=== PATIENT | female | born 1970 | race Caucasian/White ===

== ENCOUNTER 2018-10-08 15:49 | Emergency (ER) | payer BC ==
[2018-10-08] MEDS ORDERED: NA CHLORIDE 0.9% 1,000 ML ONE (16:59)
[2018-10-08 17:00] LABS: Absolute Lymphocytes (CBC) 1.4 K/uL (0.7-4.9); Absolute Monocytes 0.6 K/uL (0.1-1.3); Absolute Neutrophil 5.7 K/uL (1.8-8.0); Basophils % 0.3 % (0-1.3); Hematocrit 40.2 % (36.0-45.0); Lymphocytes % 18.1 % (15.3-44.8); MPV 8.8 fL (7.6-11.3); Monocytes % 7.7 % (3.3-12.3); RBC Red Blood Cell Count 4.89 M/uL (3.86-4.86)
[2018-10-08 17:03] LABS: Protime INR 0.96
--- NOTE | 2018-10-08 17:20 | RAD REPORT ---
EXAM DESCRIPTION: Jasmin Single View10/08/2018 5:13 pm CLINICAL HISTORY: Palpitation and shortness of breath COMPARISON: 2010 FINDINGS: The lungs appear clear of acute infiltrate. The heart is normal size IMPRESSION: No acute abnormalities displayed
[2018-10-08 17:24] LABS: ALT/SGPT 30 U/L (12-78); AST/SGOT 11 U/L (15-37); Albumin 3.7 g/dL (3.4-5.0); Alkaline Phosphatase 97 U/L (45-117); BUN Blood Urea Nitrogen 18 mg/dL (7-18); Bicarbonate 29 mmol/L (21-32); Bilirubin Direct < 0.1 mg/dL (0-0.2); Bilirubin Total 0.3 mg/dL (0.2-1.0); Glucose Level 186 mg/dL (74-106); Magnesium 1.9 mg/dL (1.8-2.4); NT PRO-BNP 25 pg/mL (<125); Potassium 3.6 mmol/L (3.5-5.1); Protein, Total 7.6 g/dL (6.4-8.2); Sodium Level 138 mmol/L (136-145); T3 Free 2.45 pg/mL (2.18-3.98); Troponin (Emerg Dept Use Only) < 0.02 ng/mL (0.0-0.045)
[2018-10-08 18:41] LABS: Urine Blood TRACE (NEG); Urine Glucose NEGATIVE (NEG); Urine Protein NEGATIVE (NEG); Urine Specific Gravity <1.005 (1.005-1.030)
--- NOTE | 2018-10-08 18:54 | RAD REPORT ---
EXAM DESCRIPTION: CT - Chest For Pe Angio - 10/08/2018 6:40 pm CLINICAL HISTORY: sob : None. TECHNIQUE: Dynamically enhanced axial 3 mm thick images of the chest were obtained during administra tion of <100> mL Isovue 370 IV contrast. Coronal and oblique reconstruction images were generated and reviewed. Exam utilizes a protocol for optimal evaluation of pulmonary arterial tree. Maximum intensity projections 3D imaging was utilized All CT scans are performed using dose optimization technique as appropriate and may include automated exposure control or mA/KV adjustment according to patient size. FINDINGS: The opacification of the pulmonary arteries is suboptimal. A gross central pulmonary embol us is not seen A thoracic aortic aneurysm is not noted. A pleural effusion is not seen. A pericardial effusion is not seen. A lung consolidation is not present. IMPRESSION: No gross central pulmonary embolus seen
--- NOTE | 2018-10-08 19:03 | ER ---
Nurse's Notes [facility] Name: Rhianna Nguyen Age: 47 yrs Sex: Female : 1970 Arrival Date: 10/08/2018 Time: 15:53 Bed 14 Private MD: Diagnosis: Palpitations;Ventricular premature depolarization Presentation: 10/08 16:05 Presenting complaint: Patient states: palpitations since this afternoon. Pt denies aa5 chest pain, reports SOB. Pt states "I've had this happen before and it was PVC's and they gave me Bystolic and it was lowering my blood pressure too much my doctor in [place] said to cut it in half and it seems like the palpitations have been happening more often now". Transition of care: patient was not received from another setting of care. Onset of symptoms was October 08, 2018. Risk Assessment: Do you want to hurt yourself or someone else? Patient reports no desire to harm self or others. Initial Sepsis Screen: Does the patient meet any 2 criteria? No. Patient's initial sepsis screen is negative. Does the patient have a suspected source of infection? No. Patient's initial sepsis screen is negative. Care prior to arrival: None. 16:05 Method Of Arrival: Ambulatory aa5 16:05 Acuity: SANDRA 3 aa5 Triage Assessment: 16:32 General: Appears in no apparent distress. uncomfortable, Behavior is calm, cooperative, hj appropriate for age. Pain: Denies pain. 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 - Social history:: Smoking status: Patient/guardian denies using tobacco. - Ebola Screening: : No symptoms or risks identified at this time. Screenin:32 Abuse screen: Denies threats or abuse. Denies injuries from another. Nutritional hj screening: No deficits noted. Tuberculosis screening: No symptoms or risk factors identified. Fall Risk None identified. Assessment: 16:32 General: Appears in no apparent distress. uncomfortable, Behavior is calm, cooperative, hj appropriate for age. Pain: Denies pain. Neuro: Level of Consciousness is awake, alert, obeys commands, Oriented to person, place, time, situation, Appropriate for age. Cardiovascular: Capillary refill < 3 seconds Patient's skin is warm and dry. Respiratory: Airway is patent Respiratory effort is even, unlabored, Respiratory pattern is regular, symmetrical. GI: No signs and/or symptoms were reported involving the gastrointestinal system. : No signs and/or symptoms were reported regarding the genitourinary system. EENT: No signs and/or symptoms were reported regarding the EENT system. Derm: No signs and/or symptoms reported regarding the dermatologic system. Musculoskeletal: No signs and/or symptoms reported regarding the musculoskeletal system. 17:09 Reassessment: Patient and/or family updated on plan of care and expected duration. Pain hj level reassessed. Patient is alert, oriented x 3, equal unlabored respirations, skin warm/dry/pink. awaiting results and POC;. 18:57 Reassessment: Patient and/or family updated on plan of care and expected duration. Pain hj level reassessed. Patient is alert, oriented x 3, equal unlabored respirations, skin warm/dry/pink. awaiting POC: Patient states feeling better. Patient states symptoms have improved. 19:30 Reassessment: Patient appears in no apparent distress at this time. Patient is alert, rr5 oriented x 3, equal unlabored respirations, skin warm/dry/pink. ED provider spoke to patient and agreed for discharge and the plan of care without complaints made. 19:45 Reassessment: Patient appears in no apparent distress at this time. Patient is alert, rr5 oriented x 3, equal unlabored respirations, skin warm/dry/pink. discharge instruction given and explained. Patient denies pain at this time. Patient states feeling better. Patient states symptoms have improved. Vital Signs: 16:08 BP 163 / 85; Pulse 86; Resp 18 S; Temp 98.8(TE); Pulse Ox 99% on R/A; Weight 99.79 kg aa5 (R); Height 5 ft. 3 in. (160.02 cm) (R); Pain 0/10; 17:09 BP 146 / 77; Pulse 85; Resp 18; Pulse Ox 100% on R/A; hj 18:58 BP 132 / 75; Pulse 84; Resp 18; Pulse Ox 100% on R/A; hj 19:40 BP 135 / 76; Pulse 80; Resp 14; Temp 98; Pulse Ox 99% ; Pain 0/10; rr5 16:08 Body Mass Index 38.97 (99.79 kg, 160.02 cm) aa5 ED Course: 15:53 Patient arrived in ED. mr 16:05 Arm band placed on. aa5 16:08 EKG completed in triage. Results shown to MD. aa5 16:10 Triage completed. aa5 16:23 EKG done, by instructional technologist. reviewed by Ricky Gonzalez MD. 3 16:30 Laith Fishman PA is PHCP. cp 16:30 Ricky Gonzalez MD is Attending Physician. cp 16:31 Nader Elias, ROBIN is Primary Nurse. hj 16:32 Patient has correct armband on for positive identification. Placed in gown. Bed in low hj position. Call light in reach. Side rails up X 1. Adult w/ patient. 16:32 Initial lab(s) drawn, by me, sent to lab. Inserted saline lock: 20 gauge in right hj antecubital area, using aseptic technique. Blood collected. 17:14 XRAY Chest (1 view) In Process Unspecified. EDMS 18:[address] nj 18:39 CT Chest For PE Angio In Process Unspecified. EDMS 18:40 CT completed. Patient tolerated procedure well. Patient moved back from CT. nj 19:45 No provider procedures requiring assistance completed. IV discontinued, intact, rr5 bleeding controlled, No redness/swelling at site. Pressure dressing applied. Administered Medications: 16:50 Drug: NS 0.9% 1000 ml Route: IV; Rate: 1 bolus; Site: right antecubital; hj Outcome: 19:03 Discharge ordered by . cp 19:45 Discharged to home ambulatory, with family. rr5 19:45 Condition: stable 19:45 Discharge instructions given to patient, Instructed on discharge instructions, follow up and referral plans. Demonstrated understanding of instructions, follow-up care. 19:47 Patient left the ED. rr5 Signatures: Dispatcher [employer] [facility] Bhargavi Iraheta, Bhavna, RN RN aa5 Nader Elias RN RN Laith Davenport PA PA cp Jordan, Migdalia Mancera [facility] Marcelo Blanco, RN RN rr5 Corrections: (The following items were deleted from the chart) 16:12 16:05 Presenting complaint: Patient states: palpitations since this afternoon. Pt aa5 denies chest pain, reports SOB. aa5 16:12 16:05 Acuity: SANDRA 2 aa5 aa5
--- NOTE | 2018-10-08 19:03 | EDPHYS ---
Physician Documentation [facility] Name: Rhianna Nguyen Age: 47 yrs Sex: Female : 1970 Arrival Date: 10/08/2018 Time: 15:53 Bed 14 Private MD: ED Physician Ricky Gonzalez HPI: 10/08 16:40 This 47 yrs old Female presents to ER via Ambulatory with complaints of cp Palpitations. 16:40 The patient presents with a history of irregular heart beat. cp 16:40 Context: The symptoms occur at rest. cp 16:40 Onset: The symptoms/episode began/occurred today, at 14:30. Duration: The patient or cp guardian reports multiple episodes, that are intermittent. 16:40 Associated signs and symptoms: Pertinent positives: SOB, Pertinent negatives: chest cp pain, cough, fever, syncope, unusual stressors, vomiting. 16:40 Severity of symptoms: in the emergency department the symptoms are unchanged despite cp home interventions. The patient has experienced a previous episode, diagnosed with PVCs and prescribed Bystolic. Patient reports her medication dose was decreased by half due to blood pressure dropping too low. 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 - Social history:: Smoking status: Patient/guardian denies using tobacco. - Ebola Screening: : No symptoms or risks identified at this time. ROS: 16:45 Constitutional: Negative for body aches, chills, fever, poor PO intake. cp 16:45 Eyes: Negative for injury, pain, redness, and discharge. cp 16:45 ENT: Negative for drainage from ear(s), ear pain, sore throat, difficulty swallowing, difficulty handling secretions. 16:45 Cardiovascular: Positive for palpitations, Negative for chest pain, edema. 16:45 Respiratory: Positive for shortness of breath, at rest. Negative for cough, wheezing. 16:45 Abdomen/GI: Negative for abdominal pain, nausea, vomiting, and diarrhea, constipation, black/tarry stool, rectal bleeding. 16:45 Back: Negative for pain at rest, pain with movement, radiated pain. 16:45 : Negative for urinary symptoms. 16:45 Skin: Negative for cellulitis, rash. 16:45 Neuro: Negative for altered mental status, dizziness, headache, syncope, weakness. 16:45 All other systems are negative. Exam: 16:15 ECG was reviewed by the Attending Physician. cp 16:50 Constitutional: The patient appears in no acute distress, alert, awake, cp non-diaphoretic, non-toxic, well developed, well nourished, obese. 16:50 Head/Face: Normocephalic, atraumatic. Eyes: Pupils equal round and reactive to light, cp extra-ocular motions intact. Lids and lashes normal. Conjunctiva and sclera are non-icteric and not injected. Cornea within normal limits. Periorbital areas with no swelling, redness, or edema. ENT: Nares patent. No nasal discharge, no septal abnormalities noted. Tympanic membranes are normal and external auditory canals are clear. Oropharynx with no redness, swelling, or masses, exudates, or evidence of obstruction, uvula midline. Mucous membranes moist. Chest/axilla: Normal chest wall appearance and motion. Nontender with no deformity. No lesions are appreciated. Cardiovascular: Regular rate and rhythm with a normal S1 and S2. No gallops, murmurs, or rubs. Normal PMI, no JVD. No pulse deficits. Respiratory: Lungs have equal breath sounds bilaterally, clear to auscultation and percussion. No rales, rhonchi or wheezes noted. No increased work of breathing, no retractions or nasal flaring. Abdomen/GI: Soft, non-tender, with normal bowel sounds. No distension or tympany. No guarding or rebound. No evidence of tenderness throughout. Back: No spinal tenderness. No costovertebral tenderness. Full range of motion. 16:50 Skin: no rash present. 16:50 Neuro: Orientation: to person, place \T\ time. Mentation: is normal, Cerebellar function: is grossly normal, Motor: moves all fours, strength is normal, Sensation: is normal. Vital Signs: 16:08 BP 163 / 85; Pulse 86; Resp 18 S; Temp 98.8(TE); Pulse Ox 99% on R/A; Weight 99.79 kg aa5 (R); Height 5 ft. 3 in. (160.02 cm) (R); Pain 0/10; 17:09 BP 146 / 77; Pulse 85; Resp 18; Pulse Ox 100% on R/A; hj 18:58 BP 132 / 75; Pulse 84; Resp 18; Pulse Ox 100% on R/A; hj 19:40 BP 135 / 76; Pulse 80; Resp 14; Temp 98; Pulse Ox 99% ; Pain 0/10; rr5 16:08 Body Mass Index 38.97 (99.79 kg, 160.02 cm) aa5 MDM: 16:30 Patient medically screened. cp 19:02 Data reviewed: vital signs, nurses notes, lab test result(s), EKG, radiologic studies, cp CT scan, plain films. 19:02 Test interpretation: by ED physician or midlevel provider: ECG, plain radiologic cp studies. Counseling: I had a detailed discussion with the patient and/or guardian regarding: the historical points, exam findings, and any diagnostic results supporting the discharge/admit diagnosis, the presence of at least one elevated blood pressure reading (>120/80) during this emergency department visit, lab results, radiology results, the need for outpatient follow up, for definitive care, a global human resources director, to return to the emergency department if symptoms worsen or persist or if there are any questions or concerns that arise at home. Response to treatment: the patient's symptoms have mildly improved after treatment, and as a result, I will discharge patient. 10/08 16:38 Order name: Basic Metabolic Panel; Complete Time: 18:05 cp 10/08 18:05 Interpretation: Normal except: GLUC 186; GFR 56. cp 10/08 16:38 Order name: CBC with Diff; Complete Time: 18:05 cp 10/08 18:06 Interpretation: Normal except: RBC 4.89. cp 10/08 16:38 Order name: LFT's; Complete Time: 18:05 cp 10/08 18:18 Interpretation: Normal except: AST 11; GLOB 3.9; A/G 0.9. cp 10/08 16:38 Order name: Magnesium; Complete Time: 18:05 cp 04/03 16:38 Order name: NT PRO-BNP; Complete Time: 18:05 cp 04/03 16:38 Order name: PT-INR; Complete Time: 18:05 cp 04/ 16:38 Order name: Troponin (emerg Dept Use Only); Complete Time: 18:05 cp 04/03 16:38 Order name: XRAY Chest (1 view); Complete Time: 18:05 cp 04/03 18:06 Interpretation: Report review. cp 0403 16:38 Order name: TSH; Complete Time: 18:05 cp 04/ 16:38 Order name: T3 Free; Complete Time: 18:05 cp 04 16:38 Order name: D-Dimer; Complete Time: 18:05 cp 0403 17:29 Order name: Urine Dipstick--Ancillary (enter results); Complete Time: 18:48 bd 04/ 18:48 Interpretation: Normal except: UBLD TRACE. cp 10/08 18:20 Order name: CT Chest For PE Angio; Complete Time: 19:01 cp 0403 19:01 Interpretation: Report reviewed. cp 0403 16:38 Order name: EKG; Complete Time: 16:39 cp 0403 16:38 Order name: Cardiac monitoring; Complete Time: 16:43 cp 0403 16:38 Order name: EKG - Nurse/Tech; Complete Time: 16:51 cp 0403 16:38 Order name: IV Saline Lock; Complete Time: 16:43 cp 0403 16:38 Order name: Labs collected and sent; Complete Time: 16:43 cp 0403 16:38 Order name: O2 Per Protocol; Complete Time: 16:43 cp 0403 16:38 Order name: O2 Sat Monitoring; Complete Time: 16:43 cp 0403 16:38 Order name: Urine Dipstick-Ancillary (obtain specimen); Complete Time: 17:15 cp 0403 16:38 Order name: Urine Test (obtain specimen); Complete Time: 17:14 cp EC:15 Rate is 80 beats/min. OH interval is normal. QRS interval is normal. QT interval is cp normal. T waves are Flattened in leads III, V3. Interpreted by me. Reviewed by me. Administered Medications: 16:50 Drug: NS 0.9% 1000 ml Route: IV; Rate: 1 bolus; Site: right antecubital; hj Disposition: 10/09 07:00 Co-signature as Attending Physician, Ricky Gonzalez MD. rn Disposition: 10/08/18 19:03 Discharged to Home. Impression: Palpitations, Ventricular premature depolarization. - Condition is Stable. - Discharge Instructions: Holter Monitoring, Palpitations, Premature Ventricular Contraction, Aspirin and Your Heart. - Medication Reconciliation Form, Thank You Letter, Antibiotic Education, Prescription Opioid Use form. - Follow up: Private Physician; When: primary global human resources director; Reason: Recheck today's complaints. - Problem is new. - Symptoms have improved. Signatures: Dispatcher [employer] EDMS Ricky Gonzalez MD MD rn Calderon, Audri RN RN aa5 Nader Elias RN RN Laith Davenport PA PA cp Roque, Raymond RN RN rr5 Corrections: (The following items were deleted from the chart) 10/08 19:04 19:03 10/08/2018 19:03 Discharged to Home. Impression: Palpitations. Condition is cp Stable. Forms are Medication Reconciliation Form, Thank You Letter, Antibiotic Education, Prescription Opioid Use. Follow up: Private Physician; When: primary global human resources director; Reason: Recheck today's complaints. Problem is new. Symptoms have improved. cp 19:47 19:04 10/08/2018 19:03 Discharged to Home. Impression: Palpitations; Ventricular rr5 premature depolarization. Condition is Stable. Discharge Instructions: Holter Monitoring, Palpitations, Premature Ventricular Contraction, Aspirin and Your Heart. Forms are Medication Reconciliation Form, Thank You Letter, Antibiotic Education, Prescription Opioid Use. Follow up: Private Physician; When: primary global human resources director; Reason: Recheck today's complaints. Problem is new. Symptoms have improved. cp
[2018-10-08 19:59] VITALS: TEMP 98.8
[2018-10-08 20:02] VITALS: O2SAT 100
[2018-10-08 20:04] VITALS: BP 132/75
== END 2018-10-08 19:47 | disposition home or self-care (01) ==
LOC: ER 15:49
DX: R00.2 Palpitations (principal); I49.3 Ventricular premature depolarization; R06.02 Shortness of breath; E11.9 Type 2 diabetes mellitus without complications; I10 Essential (primary) hypertension; Z88.1 Allergy status to other antibiotic agents; Z88.5 Allergy status to narcotic agent; Z88.0 Allergy status to penicillin; Z88.2 Allergy status to sulfonamides
CPT/HCPCS: 36415; 71045; 71275; 80048; 80076; 81003; 83735; 83880; 84443; 84481; 84484; 85025; 85379; 85610; 93005; 99284; J7030; Q9967

== ENCOUNTER 2019-02-21 22:22 | Emergency (ER) | payer BC ==
--- OUTSIDE RECORDS SUMMARY | 2019-02-21 22:25 | XMS REPORT | Clinical Summary ---
:1970 Author Organization [facility] Address [address] [place] [address] Care Team Providers Name Role Phone Angela Al MD Primary Care Provider Allergies Active Allergy Reactions Severity Noted Date Comments Azithromycin Rash, GI Intolerance Low 11/13/2017 Codeine Other (See Comments), 09/07/2015 Chest pain (severe), GI Intolerance dizziness (moderate to severe), nausea (moderate to severe), respiratory distress (moderate to severe) Erythromycin 05/08/2017 Hydrocodone GI Intolerance 11/13/2017 Lactase GI Intolerance 09/23/2006 PENICILLIN. SULFA. Latex 04/11/2017 "gloves" --- states adhesives ok Morphine Diarrhea, Other (See 10/12/2015 Chest pain (severe), Comments), GI diarrhea (moderate to Intolerance severe), nausea (moderate to severe) Morphine Sulfate 10/19/2010 Other 09/23/2006 CODEINE. GIChest pains, increasedheart rate CODEINE. GIChest pains, increasedheart rate Penicillins Rash, GI Intolerance, Low 10/19/2010 PENICILLIN. GI Bleeding Nausea (moderate to severe), rash (moderate) Sulfa (Sulfonamide GI Bleeding 03/07/2016 SULFA. Antibiotics) Sulfanilamide Rash, GI Intolerance Low 09/07/2015 Nausea (moderate to severe), rash (moderate) Tetracyclines Nausea Only, Rash Low 10/12/2015 Nausea (moderate to severe), rash (moderate) Tramadol GI Intolerance 05/16/2017 Medications Medication Sig Dispensed Refills Start End Date Status Date pen needle, Use with lantus pen 200 each 3 Active diabetic (BD daily 8 ULTRA-FINE SHORT PEN NEEDLE) 31 gauge x 5/16" needle CONTOUR NEXT TEST Check glucose BID 200 strip 3 Active STRIPS strip test 8 strips MICROLET LANCET Check glucose BID 200 each 6 Active misc 8 BYSTOLIC 5 mg TAKE 1 TABLET BY 90 tablet 3 Active tabletIndications MOUTH EVERY DAY 8 : Essential hypertension metFORMIN TAKE 1/2 TABLET(S) 15 tablet 0 Active (GLUCOPHAGE) 500 BY MOUTH IN THE 9 mg tablet MORNING semaglutide 0.25 Inject 0.5 mg under 2 Syringe 3 04/14/20 Active mg or 0.5 mg(2 the skin every 7 9 19 mg/1.5 mL) pen days for 90 days. injector insulin GLARGINE TAKE 5 UNITS 3 pen 11 Active (LANTUS SOLOSTAR SUBCUTANEOUSLY IN 9 U-100 INSULIN) THE MORNING WITH 100 unit/mL BREAKFAST injection (pen) CONTOUR NEXT Check glucose BID 200 strip 3 03/06/20 Discontinued STRIPS strip test 6 18 strips FAMOTIDINE Take 20 mg by mouth 0 11/26/19 Discontinued (PEPCID ORAL) daily as needed. 19 metFORMIN Take 1/2 tab in the 30 tablet 11 10/25/19 Discontinued (GLUCOPHAGE) 500 morning 7 19 mg tablet nebivolol Take 1 tablet (5 mg 90 tablet 3 06/18/20 Discontinued (BYSTOLIC) 5 MG total) by mouth 7 18 tabletIndications daily. Bystolic 5 : Essential mg tablet hypertension montelukast Take 1 tablet (10 30 tablet 11 10/11/19 Discontinued (SINGULAIR) 10 mg mg total) by mouth 8 19 tablet nightly. mag/aluminum/sod Take by mouth as 0 11/26/19 Discontinued bicarb/alginc needed. 19 (GAVISCON ORAL) calcium Take 500 mg by 0 11/26/19 Discontinued carb,gluc/mag mouth. 19 ox,gluc (CALCIUM MAGNESIUM ORAL) insulin GLARGINE Take 5 units 3 mL 11 02/09/20 Discontinued (LANTUS SOLOSTAR subcutaneously in 8 19 U-100 INSULIN) the morning with 100 unit/mL breakfast injection (pen) TRULICITY 1.5 INJECT 1.5 MG UNDER 6 Syringe 1 12/17/19 Discontinued mg/0.5 mL pen THE SKIN EVERY 7 8 19 injector DAYS. nitrofurantoin, Take 1 capsule (100 10 capsule 0 10/16/19 macrocrystal-mono mg total) by mouth 9 19 hydrate, 2 (two) times a day (MACROBID) 100 MG for 5 days. capsule rosuvastatin Take 1 tablet (10 90 tablet 3 11/26/19 Discontinued (CRESTOR) 10 MG mg total) by mouth 9 19 tablet daily. GLUCOPHAGE 500 mg Take 1/2 po qd 45 tablet 3 11/26/19 Discontinued tablet 9 19 escitalopram Take 1 tablet (10 30 tablet 2 01/15/20 Discontinued (LEXAPRO) 10 MG mg total) by mouth 9 19 tablet daily for 90 days. TRULICITY 1.5 INJECT 1.5 MG UNDER 6 Syringe 1 12/18/19 Discontinued mg/0.5 mL pen THE SKIN EVERY 7 9 19 injector DAYS. dulaglutide Inject 1.5 mg under 6 Syringe 1 12/19/12/23/19 Discontinued (TRULICITY) 1.5 the skin once a 9 19 mg/0.5 mL pen week for 30 days. injector dulaglutide Inject 1.5 mg under 6 Syringe 1 12/22/01/15/20 Discontinued (TRULICITY) 1.5 the skin once a 9 19 mg/0.5 mL pen week for 30 days. injector Active Problems Problem Noted Date Coronary artery disease involving [place] heart with angina pectoris 10/10/2018 SOB (shortness of breath) 10/10/2018 Cortical age-related cataract of left eye 09/03/2018 Overview: Trace cortical cataract OS. Defer surgery. Rx glasses given. Congenital hypertrophy of retinal pigment epithelium, left eye 08/01/2016 Irregular menstrual cycle 11/09/2015 Multiple-type hyperlipidemia 09/07/2015 Sleep apnea 09/07/2015 Adult body mass index greater than 30 11/02/2010 Female infertility 10/08/2010 Diabetes mellitus 08/01/2010 Hypertension 09/23/2006 Abnormal liver function tests 09/23/2006 Encounters Date Type Specialty Care Team Description 02/08/2019 Refill Internal Medicine Angela Al MD 01/14/2019 Office Visit Internal Medicine Angela Al Type 2 diabetes mellitus without complication, with long-term current use of insulin (HCC) ( Primary Dx); MD Josue Essential hypertension; BMI 37.0-37.9, adult 12/22/2018 Refill Internal Medicine Angela Al MD 12/17/2018 Refill Internal Medicine Angela Al MD 12/16/2018 Refill Internal Medicine Angela Al MD 11/25/2018 Office Visit Obstetrics and Yarely Rangel Encounter for routine gynecological examination with Papanicolaou smear of cervix (Primary Dx); Gynecology MD Shawanda Special screening for malignant neoplasms, colon; Menopausal symptom; Burning with urination 11/25/2018 Orders Only Yarely Hilliard MD 10/24/2018 Refill Internal Medicine Angela Al MD 10/23/2018 Orders Only Internal Medicine Melanie García, HEAVEN 10/16/2018 Office Visit Internal Medicine Angela Al Type 2 diabetes mellitus with hyperglycemia, without long-term current use of insulin (HCC) ( Primary Dx); MD Josue Essential hypertension; Acute cystitis without hematuria; Palpitations; Fatty liver; Pure hypercholesterolemia; BMI 37.0-37.9, adult; CECI (obstructive sleep apnea) 10/10/2018 Lab Lab Angela Al Type 2 diabetes mellitus without complication, without long-term current use of insulin (HCC); MD Josue Essential hypertension; Urinary tract infection without hematuria, site unspecified 10/10/2018 Office Visit Cardiology Tyrone Orr Palpitation (Primary Dx); MD Ricky Essential hypertension; SOB (shortness of breath); Multiple-type hyperlipidemia 10/10/2018 Documentation Internal Medicine Patsy Gomez MD 10/10/2018 Orders Only Internal Medicine Melanie García, Type 2 diabetes mellitus without complication, without long-term current use of insulin (HCC) ( Primary Dx); HEAVEN Essential hypertension; Urinary tract infection without hematuria, site unspecified 09/03/2018 Office Visit Ophthalmology Sonali Arenas Type 2 diabetes mellitus without complication, with long-term current use of insulin (HCC) ( Primary Dx); MD Sunita Cortical age-related cataract of left eye; Mild Bilateral ocular hypertension; Congenital hypertrophy of retinal pigment epithelium, left eye 06/18/2018 Refill Cardiology Tyrone Orr Med Chin García MD 05/21/2018 Hospital Encounter Radiology Coselli, Breast mass John Napoles MD 05/21/2018 Hospital Encounter Radiology Coselli, Breast mass John Napoles MD 04/10/2018 Transcribe Orders Access Coselli, Follow-up exam (Primary Dx); John Napoles MD Breast mass 03/07/2018 Orders Only Internal Medicine Melanie García MA 03/06/2018 Orders Only Internal Medicine Melanie García MA 03/06/2018 Refill Internal Medicine Angela Al MD 03/06/2018 Refill Internal Medicine Angela Al MD after 02/20/2018 Immunizations Name Dates Previously Given Next Due INFLUENZA QUAD 04/09/2018 INFLUENZA QUAD PF 04/04/2016 Influenza Trivalent 04/09/2017, 04/07/2014 Tdap 03/16/2017 Family History Medical History Relation Name Comments Heart attack Father Heart disease Father Heart failure Father congestive heart failure Hyperlipidemia Father Hypertension Father Prostate cancer Father Stroke Father Transient ischemic attack Father Esophageal cancer Maternal Grandfather Heart attack Maternal Grandmother Heart disease Maternal Grandmother Diabetes Mother Heart attack Mother Heart disease Mother Hyperlipidemia Mother Hypertension Mother Osteoporosis Mother Thyroid disease Mother disorder of thyroid gland Cancer Other Heart disease Other Hypertension Other Stroke Paternal Grandfather Hypertension Paternal Grandmother Stroke Paternal Grandmother Relation Name Status Comments Father 09/25/2017 Maternal Grandfather Maternal Grandmother Mother Alive Other Paternal Grandfather Paternal Grandmother Social History Tobacco Use Types Packs/Day Years Used Date Never Smoker Smokeless Tobacco: Never Used Tobacco Cessation: Counseling Given: No Alcohol Use Drinks/Week oz/Week Comments Yes 1 Standard drinks or equivalent occasional Social Isolation Answer Date Recorded In a typical week, how many times do you talk on the phone Not asked with family, friends, or neighbors? How often do you get together with friends or relatives? Not asked How often do you attend taoism or mandaen services? Not asked Do you belong to any clubs or organizations such as taoism Not asked groups, unions, fraternal or athletic groups, or school groups? How often do you attend meetings of the clubs or Not asked organizations you belong to? Are you now , , , , never 01/14/2019 or living with a partner? Physical Activity Answer Date Recorded On average, how many days per week do you engage in moderate 0 days 2018 to strenuous exercise (like walking fast, running, jogging, dancing, swimming, biking, or other activities that cause a light or heavy sweat)? On average, how many minutes do you engage in exercise at Not asked this level? Stress Answer Date Recorded Do you feel stress - tense, restless, nervous, or anxious, Rather much 2018 or unable to sleep at night because your mind is troubled all the time - these days? Financial Resource Strain Answer Date Recorded How hard is it for you to pay for the very basics like Not hard at all 2018 food, housing, medical care, and heating? Food Insecurity Answer Date Recorded Within the past 12 months, you worried that your food would Never true 2018 run out before you got money to buy more. Within the past 12 months, the food you bought just didn't Never true 2018 last and you didn't have money to get more. Transportation Needs Answer Date Recorded In the past 12 months, has lack of transportation kept you from No 01/14/2019 medical appointments or from getting medications? In the past 12 months, has lack of transportation kept you from No 01/14/2019 meetings, work, or getting things needed for daily living? Sex Assigned at Date Recorded Female 01/13/2019 11:05 AM CDT Job Start Date Occupation Industry Not on file Not on file Not on file Travel History Travel Start Travel End No recent travel history available. Last Filed Vital Signs Vital Sign Reading Time Taken Blood Pressure 144/84 01/14/2019 11:19 AM CDT Pulse 80 01/14/2019 11:19 AM CDT Temperature - - Respiratory Rate - - Oxygen Saturation - - Inhaled Oxygen Concentration - - Weight 97.1 kg (214 lb) 01/14/2019 11:19 AM CDT Height 160 cm (5' 3") 01/14/2019 11:19 AM CDT Body Mass Index 37.91 01/14/2019 11:19 AM CDT Plan of Treatment Date Type Specialty Care Team Description 02/25/2019 Office Visit Obstetrics and Gynecology Yarely Rangel MD [address] [place] [address] 04/21/2019 Office Visit Internal Medicine Angela Al MD [address] [facility] [address] [place] [address] [phone] 09/04/2019 Office Visit Ophthalmology NorwichSonali morillo MD [address] [facility] [address] [place] [address] [phone] Health Maintenance Due Date Last Done Comments COLONOSCOPY SCREENING 2018 SHINGLES VACCINES (#1) 2018 INFLUENZA VACCINE 02/05/2019 04/09/2018, 04/09/2017, 04/09/2017, Additional history exists BREAST CANCER SCREENING 05/21/2019 05/21/2018, 05/21/2018, 11/28/2017, Additional history exists DIABETIC FOOT EXAM 01/15/2020 01/14/2019, 01/14/2019, 01/06/2018, Additional history exists URINE MICROALBUMIN 01/15/2020 01/14/2019, 01/14/2019, 10/10/2017, Additional history exists DIABETIC RETINAL EYE EXAM 09/03/2020 09/03/2018, 09/03/2018, 09/03/2018, Additional history exists Procedures Procedure Name Priority Date/Time Associated Diagnosis Comments POC GLYCOSYLATED Routine 01/14/2019 11:32 Type 2 diabetes Results for this HEMOGLOBIN (HGB A1C) AM CDT mellitus without procedure are in complication, with the results long-term current use section. of insulin ([facility]) MICROALBUMIN, URINE, Routine 01/14/2019 11:10 Type 2 diabetes Results for this RANDOM AM CDT mellitus without procedure are in complication, with the results long-term current use section. of insulin ([facility]) LIPID PANEL Routine 01/14/2019 11:10 Type 2 diabetes Results for this AM CDT mellitus without procedure are in complication, with the results long-term current use section. of insulin ([facility]) COMPREHENSIVE Routine 01/14/2019 11:10 Type 2 diabetes Results for this METABOLIC PANEL AM CDT mellitus without procedure are in complication, with the results long-term current use section. of insulin ([facility]) CBC WITH PLATELET AND Routine 01/14/2019 11:10 Type 2 diabetes Results for this DIFFERENTIAL AM CDT mellitus without procedure are in complication, with the results long-term current use section. of insulin ([facility]) URINALYSIS, COMPLETE, Routine 11/25/2018 1:18 Burning with Results for this WITH REFLEX TO PM CDT urination procedure are in CULTURE the results section. THINPREP TIS PAP AND Routine 11/25/2018 12:31 Encounter for routine Results for this HPV MRNA E6/E7 REFLEX PM CDT gynecological procedure are in HPV 16,18/45 examination with the results Papanicolaou smear of section. cervix OCCULT BLOOD, STOOL Routine 11/25/2018 12:31 Results for this PM CDT procedure are in the results section. NM MYOCARDIAL Routine 10/15/2018 5:15 Essential Results for this PERFUSION REST STRESS PM CDT hypertension procedure are in 1 DAY Palpitation the results section. CV STRESS TEST Routine 10/15/2018 5:15 Essential Results for this NUCLEAR CARDIO PM CDT hypertension procedure are in Palpitation the results section. LIPID PANEL Routine 10/10/2018 11:18 Type 2 diabetes Results for this AM CDT mellitus without procedure are in complication, without the results long-term current use section. of insulin ([facility]) Essential hypertension HEMOGLOBIN A1C Routine 10/10/2018 11:18 Type 2 diabetes Results for this AM CDT mellitus without procedure are in complication, without the results long-term current use section. of insulin ([facility]) Essential hypertension COMPREHENSIVE Routine 10/10/2018 11:18 Type 2 diabetes Results for this METABOLIC PANEL AM CDT mellitus without procedure are in complication, without the results long-term current use section. of insulin ([facility]) Essential hypertension CBC WITH PLATELET AND Routine 10/10/2018 11:18 Type 2 diabetes Results for this DIFFERENTIAL AM CDT mellitus without procedure are in complication, without the results long-term current use section. of insulin ([facility]) Essential hypertension URINALYSIS, AUTOMATED Routine 10/10/2018 10:41 Type 2 diabetes Results for this WITH MICROSCOPY AM CDT mellitus without procedure are in complication, without the results long-term current use section. of insulin ([facility]) Essential hypertension Urinary tract infection without hematuria, site unspecified URINE CULTURE Routine 10/10/2018 10:41 Type 2 diabetes Results for this AM CDT mellitus without procedure are in complication, without the results long-term current use section. of insulin ([facility]) Essential hypertension Urinary tract infection without hematuria, site unspecified ECG 12-LEAD Routine 10/10/2018 10:29 Essential Results for this AM CDT hypertension procedure are in the results section. US BREAST COMPLETE Routine 05/21/2018 11:42 Breast mass Results for this BILATERAL AM DIRECT MAIL COORDINATOR procedure are in the results section. MAMMO BREAST Routine 05/21/2018 10:42 Breast mass Results for this DIAGNOSTIC AM DIRECT MAIL COORDINATOR procedure are in TOMOSYNTHESIS the results BILATERAL section. after 02/20/2018 Results POC glycosylated hemoglobin (Hb A1C) (01/14/2019 11:32 AM CDT) [facility] POC Hemoglobin A1C 6.7 % Specimen Blood Microalbumin, urine, random (01/14/2019 11:10 AM CDT) [facility] Microalbumin, <0.2 See Note: [email or web address] urine Comment: mg/dL [place] Reference Range: Reference Range Not established HEATHER [facility] Comment: [place] The ADA defines abnormalities in albumin excretion as follows: Category Result (mcg/mg creatinine) Normal<30 Microalbuminuria 30-299 Clinical albuminuria > FW=886 The ADA recommends that at least two of three specimens collected within a 3-6 month period be abnormal before considering a patient to be within a diagnostic category. Specimen Urine Narrative Performed At FASTING:NO [facility] FASTING: NO Resulting Agency Comment Performing Organization Information: Site ID: [id number] Name: [facility] Address: [address] [place] [id number] Director: Shireen Mchugh Performing Organization Address City/State/Zipcode Phone [place] [address] CBC with platelet and differential (01/14/2019 11:10 AM CDT)Only the most recent of2 resultswithin the time period is included. [facility] WBC 6.3 3.8 - 10.8 [facility] Thousand/uL [place] RBC 4.81 3.80 - 5.10 [facility] Million/uL [place] HGB 12.8 11.7 - 15.5 [facility] g/dL [place] HCT 39.4 35.0 - 45.0 % [email or web address] [place] MCV 81.9 80.0 - 100.0 fL [email or web address] [place] MCH 26.6 (L) 27.0 - 33.0 pg [facility] [place] MCHC 32.5 32.0 - 36.0 [facility] g/dL [place] RDW 13.4 11.0 - 15.0 % [email or web address] [place] Platelet count 259 140 - 400 [facility] Thousand/uL [place] MPV 10.2 7.5 - 12.5 fL [facility] [place] Neutrophils, absolute 4,227 1,500 - 7,800 [facility] cells/uL [place] Lymphocytes, absolute 1,411 850 - 3,900 [facility] cells/uL [place] Monocytes, absolute 536 200 - 950 [facility] cells/uL [place] Eosinophils, absolute 88 15 - 500 [facility] cells/uL [place] Basophils, absolute 38 0 - 200 [facility] cells/uL [place] Neutrophils 67.1 % [facility] [place] Lymphocytes 22.4 % [facility] [place] Monocytes 8.5 % [facility] [place] Eosinophils 1.4 % [facility] [place] Basophils + RC 0.6 % [facility] [place] Specimen Blood Narrative Performed At FASTING:NO [facility] FASTING: NO Resulting Agency Comment Performing Organization Information: Site ID: [id number] Name: [facility] Address: [address] [place] [phone] Director: Shireen Mchugh Performing Organization Address City/State/Zipcode Phone Number [email or web address] [place] [address] [place], [place] [id number] Lipid panel (01/14/2019 11:10 AM CDT)Only the most recent of2 resultswithin the time period is included. Cholesterol, total 217 (H) <200 mg/dL [facility] [place] HDL cholesterol 58 >50 mg/dL [facility] [place] Triglycerides 139 <150 mg/dL [facility] [place] LDL cholesterol 134 (H) mg/dL (calc) [facility] calculated Comment: [place] Reference range: <100 Desirable range <100 mg/dL for primary prevention; <70 mg/dL for patients with CHD or diabetic patients with > or=2 CHD risk factors. LDL-C is now calculated using the Chet-Rachana calculation, which is a validated novel method providing better accuracy than the Friedewald equation in the estimation of LDL-C. Chet BERMUDEZ et al. MAKENZIE. 2013;310(19): 2981-1074 (http://education.[employer]kicker.[employer]/faq/DDC897) Cholesterol/HDL 3.7 <5.0 (calc) [facility] Non-HDL cholesterol 159 (H) <130 mg/dL [facility] Comment: (calc) [place] For patients with diabetes plus 1 major ASCVD risk factor, treating to a non-HDL-C goal of <100 mg/dL (LDL-C of <70 mg/dL) is considered a therapeutic option. Specimen Blood Narrative Performed At FASTING:NO [facility] FASTING: NO Resulting Agency Comment Performing Organization Information: Site ID: [id number] Name: [facility] Address: [address] [place] [phone] Director: Shireen Mchugh Performing Organization Address City/State/Zipcode Phone Number JOSE BRAY [place] [address] [place] [address] Comprehensive metabolic panel (01/14/2019 11:10 AM CDT)Only the most recent of2 resultswithin the time period is included. Glucose 136 65 - 139 [facility] Comment: mg/dL [place] Non-fasting reference interval BUN, whole blood 11 7 - 25 mg/dL [email or web address] [place] Creatinine 0.81 0.50 - 1.05 [facility] Comment: mg/dL [place] For patients >49 years of age, the reference limit for Creatinine is approximately 13% higher for people identified as -[place]. EGFR Non-Afr. 85 > OR=[address] [facility] [place] mL/min/1.73m [place] 2 EGFR 98 > OR=60 [facility] [place] mL/min/1.73m [place] 2 BUN/creatinine NOT APPLICABLE 6 - 22 [facility] ratio (calc) [place] Sodium 136 135 - 146 [facility] mmol/L [place] Potassium 4.3 3.5 - 5.3 [facility] mmol/L [place] Chloride 103 98 - 110 [facility] mmol/L [place] CO2 27 20 - 32 [facility] mmol/L [place] Calcium 9.3 8.6 - 10.4 [facility] mg/dL [place] Protein 6.7 6.1 - 8.1 [facility] g/dL [place] Albumin, S 4.1 3.6 - 5.1 [facility] g/dL [place] Globulin, total 2.6 1.9 - 3.7 [facility] g/dL (calc) [place] Albumin/globulin 1.6 1.0 - 2.5 [facility] ratio (calc) [place] Total bilirubin 0.4 0.2 - 1.2 [facility] mg/dL [place] Alkaline 74 33 - 130 U/L [facility] phosphatase [place] AST 22 10 - 35 U/L [facility] [place] ALT 40 (H) 6 - 29 U/L [facility] [place] Specimen Blood Narrative Performed At FASTING:NO [facility] FASTING: NO Resulting Agency Comment Performing Organization Information: Site ID: [id number] Name: [facility] Address: [address] [place] [phone] Director: Shireen Mchugh Performing Organization Address [facility]/Zipcode Phone [place] [address] URINALYSIS, COMPLETE, WITH REFLEX TO CULTURE (11/25/2018 1:18 PM CDT) Color, UA YELLOW YELLOW [facility] [place] Appearance CLEAR CLEAR [facility] [place] Specific gravity, 1.003 1.001 - 1.035 [facility] urine [place] pH, urine 7.0 5.0 - 8.0 [facility] [place] Glucose, urine NEGATIVE NEGATIVE [facility] [place] Bilirubin, UA NEGATIVE NEGATIVE [facility] [place] Ketones, UA NEGATIVE NEGATIVE [facility] [place] Occult blood, NEGATIVE NEGATIVE [facility] urine [place] Protein, UA NEGATIVE NEGATIVE [facility] [place] Nitrite, UA NEGATIVE NEGATIVE [facility] [place] Leukocyte NEGATIVE NEGATIVE [facility] esterase, UA [place] WBC, UA 0-5 < OR=5 /HPF [facility] [place] RBC, UA NONE SEEN < OR=2 /HPF [facility] [place] Squamous 0-5 < OR=5 /HPF [facility] epithelial cells, [place] UA Bacteria, UA NONE SEEN NONE SEEN /HPF [facility] [place] Hyaline casts, UA NONE SEEN NONE SEEN /LPF [facility] [place] Reflex NO CULTURE [facility] INDICATED [place] Specimen Resulting Agency Comment Performing Organization Information: Site ID: [id number] Name: [facility] Address: [address] [place] [phone] Director: Shireen Mchugh Performing Organization Address [facility] Phone Number [place] [address] [address] [address] THINPREP TIS PAP AND HPV mRNA E6/E7 REFLEX HPV 16,18/45 (11/25/2018 12:31 PM CDT ) Clinical information None given [facility] [place] Date of last NONE GIVEN [facility] menstrual period [facility] [place] Prev. pap: NONE GIVEN [facility] [place] Prev. bx: NONE GIVEN [facility] [place] Source Cervix [facility] [place] Statement of adequacy [facility] Comment: DIAGNOSTICS Satisfactory for evaluation. [place] Endocervical/transformation zone component present. Age and/or menstrual status not provided Interpretation/result [facility] : Comment: DIAGNOSTICS Negative for intraepithelial lesion or malignancy. [place] Atrophic pattern; predominantly parabasal cells Comment [facility] Comment: DIAGNOSTICS This Pap test has been evaluated with Triggertrap technology. Cloth Grader JOSE Comment: DIAGNOSTICS VXJ, CT(ASCP) [place] CT screening location: [place] [address] Comment [facility] Comment: DIAGNOSTICS EXPLANATORY NOTE: [place] The Pap is a screening test for cervical cancer. It is not a diagnostic test and is subject to false negative and false positive results. It is most reliable when a satisfactory sample, regularly obtained, is submitted with relevant clinical findings and history, and when the Pap result is evaluated along with historic and current clinical information. HPV mRNA e6/e7 Not Detected Not Detected [facility] Comment: DIAGNOSTICS-IRVI This test was performed using the APTIMA HPV Assay ([employer] NG II This assay detects E6/E7 viral messenger RNA (mRNA) from 14 high-risk HPV types (16,18,31,33,35,39,45,51,52,56,58,59,66,68). The analytical performance characteristics of this assay have been determined by [employer]. The modifications have not been cleared or approved by the FDA. This assay has been validated pursuant to the CLIA regulations and is used for clinical purposes. Specimen Stool Resulting Agency Comment Performing Organization Information: Site ID: [id number] Name: [facility] Lab Address: [address] [place] [id number] Director: Dr. Deyvi Reddy Site ID: [id number] Name: [facility] Lab Address: [address] [place] [phone] Director: Shireen Mchugh Performing Organization Address [facility] [place] [address] [address] Occult blood, stool (11/25/2018 12:31 PM CDT) Occult blood, stool Negative Negative [facility] Specimen Narrative Performed At Performed at: [id number] Nursing Aide: Omi Parrish MD, Phone:[phone] Performing Organization Address [facility] Phone Number [facility] Cv stress test (10/15/2018 5:15 PM CDT) Resting HR 68 [facility] MUSE Resting BP 141 [facility] MUSE Peak MET Achieved 8.5 [facility] MUSE Protocol Name KEATON [facility] MUSE Time in Exercise 00:07:50 [facility] MUSE Phase Max Systolic BP 215 H MUSE Max Diastolic BP 110 [facility] Max Heart Rate 151 [facility] Max Predicted Heart 171 H MUSE Rate Target HR Formula (220 - Age)*85% [facility] MUSE Test Indication Palpitations H MUSE Arrhy During Ex H MUSE ECG Interp Before EX H MUSE ECG Interp During Ex H MUSE Ex Summary Comment [facility] MUSE Chest Pain Statement none [facility] MUSE Overall HR Response H MUSE to Exercise Overall BP Response [facility] MUSE To Exercise Reason for Fatigue [facility] MUSE Termination Stress Test -Waveform interpreted [facility] MUSE Impression in report associated with image study. No interpretation is provided as part of this Stress ECG report.-Electronically Signed By Rasheed ARGUETA, Vianca ([id number]), magazine editor Armaan Isaac ([id number]) on 10/16/2018 2:09:44 PM Specimen Narrative Performed At Performing Organization Address City/State/Zipcode Phone Number [facility] MUSE [address] [place] [address] Ks myocardial perfusion (10/15/2018 5:15 PM CDT) Specimen Narrative Performed At [facility] Nuclear Cardiology and Cardiac CT [address] [place] [address] Myocardial Perfusion Imaging Report Stress ECG tracings are available in MUSE, [employer] and [employer] Web All ECG interpretations are included in this report Pat.Name:RHIANNA NGUYEN Demetrius Pat.ID:[id number] .Date: 10/14/2018Refer.:Kirby Exam Time: 10:00:00 AM Study Type:Myocardial Perfusion Imaging Height:63inWeight: 213.55lb BSA: 1.99 m2 DOBAge:1970,47Y Sex: FEMALENuclear Tech:HECTOR Arteaga Nuclear Event ID:[id number] Order ID:[id number] Reason for Study:Palpitation, essential hypertension Procedures:Single Day Rest / Stress Race:C Clinical Symptoms:Exercise SUMMARY: BASELINE ECGNormal Sinus Rhythm STRESS TEST RESULTS Maximal Predicted HR171 beats/minute 85% Maximal Predicted HR 145 beats/minute Stress Test Xzflieed52 okcvowu84 seconds Resting Heart Rate75 beats/minute Maximal Heart Wsue321 beats/minute Resting Blood Zeblldbn046/90 mmHg Maximal Blood Vmufsdvz286/110 mmHg % Maximal Heart Rate Achieved 88% METS Achieved/Maximal RPP 8.5/ 32,465 Symptoms During TestFatigue, Dyspnea Reason for Stopping TestPatient achieved >=85% maximal predicted heart rate for age Maximal ST-segment shiftNone Stress-Induced Arrhythmias None Uriarte Treadmill Score7.8 Ischemic electrocardiographic changes (ST-segment depression) did not occur at peak exercise stress. STRESS TEST INTERPRETATION Normal maximal exercise treadmill test. Exercise tolerance is good.The Uriarte Treadmill Score is of low prognostic risk. SCINTIGRAPHIC RESULTS Perfusion Defect Size (% LV) 0 % Total 0 % Ischemia 0 % Scar Left Ventricular Perfusion Results There is normal tracer distribution during stress and rest. Gated SPECT Results The post-stress left ventricular ejection fraction is 69 % with normal regional wall motion and left ventricular thickening.Left ventricular end-diastolic volume is 61 ml; end-systolic volume is79 ml. The left ventricle is of normal size at stress and at rest.The right ventricle is of normal size with normal wall motion. Conclusion Normal exercise Tc-99m tetrofosmin myocardial perfusion study.The left ventricular ejection fraction is normal. Comments Patients with a normal stress myocardial perfusion study have a low (< 1%) annual risk of cardiac or nonfatal myocardial infarction. Study Quality/Artifacts The study quality is good. The mild reduction in inferoapical, mid and basal inferior wall counts during stress is probably due to diaphragmatic and other soft tissue attenuation artifacts rather than coronary artery disease. Comparison to Previous Study None available. Signed 10/16/2018 07:31 AM Vianca Iqbal MD Procedure Note Interface, Radiology Results In - 10/16/2018 7:32 AM CDT Nuclear Cardiology and Cardiac CT [address] [place] [address] Myocardial Perfusion Imaging Report Stress ECG tracings are available in MUSE, EPIC and CV Web All ECG interpretations are included in this report Pat.Name: RHIANNA NGUYEN Pat.ID: [id number] .Date: 10/14/2018 Refer.MD: Kirby Exam Time: 10:00:00 AM Study Type:Myocardial Perfusion Imaging Height: 63in Weight: 213.55lb BSA: 1.99 m2 Age: 3 1970,47Y Sex: FEMALE Nuclear Tech:HECTOR Arteaga Nuclear Event ID:[id number] Order ID: [id number] Reason for Study:Palpitation, essential hypertension Procedures:Single Day Rest / Stress Race: C Clinical Symptoms:Exercise SUMMARY: BASELINE ECG Normal Sinus Rhythm STRESS TEST RESULTS Maximal Predicted HR 171 beats/minute 85% Maximal Predicted HR 145 beats/minute Stress Test Duration 07 minutes 50 seconds Resting Heart Rate 75 beats/minute Maximal Heart Rate 151 beats/minute Resting Blood Pressure 141/90 mmHg Maximal Blood Pressure 215/110 mmHg % Maximal Heart Rate Achieved 88% METS Achieved/Maximal RPP 8.5 / 32,465 Symptoms During Test Fatigue, Dyspnea Reason for Stopping Test Patient achieved >=85% maximal predicted heart rate for age Maximal ST-segment shift None Stress-Induced Arrhythmias None Uriarte Treadmill Score 7.8 Ischemic electrocardiographic changes (ST-segment depression) did not occur at peak exercise stress. STRESS TEST INTERPRETATION Normal maximal exercise treadmill test. Exercise tolerance is good. The Uriarte Treadmill Score is of low prognostic risk. SCINTIGRAPHIC RESULTS Perfusion Defect Size (% LV) 0 % Total 0 % Ischemia 0 % Scar Left Ventricular Perfusion Results There is normal tracer distribution during stress and rest. Gated SPECT Results The post-stress left ventricular ejection fraction is 69 % with normal regional wall motion and left ventricular thickening. Left ventricular end-diastolic volume is 61 ml; end-systolic volume is 79 ml. The left ventricle is of normal size at stress and at rest. The right ventricle is of normal size with normal wall motion. Conclusion Normal exercise Tc-99m tetrofosmin myocardial perfusion study. The left ventricular ejection fraction is normal. Comments Patients with a normal stress myocardial perfusion study have a low (< 1%) annual risk of cardiac or nonfatal myocardial infarction. Study Quality/Artifacts The study quality is good. The mild reduction in inferoapical, mid and basal inferior wall counts during stress is probably due to diaphragmatic and other soft tissue attenuation artifacts rather than coronary artery disease. Comparison to Previous Study None available. Signed 10/16/2018 07:31 AM Vianca Iqbal MD Performing Organization Address City/[facility] Phone Number [facility] [address] [place] [address] Hemoglobin A1c (10/10/2018 11:18 AM CDT) Hemoglobin A1C 7.3 (H) <5.7 % of [email or web address] Comment: total Hgb [place] For someone without known diabetes, a hemoglobin A1c value of 6.5% or greater indicates that they may have diabetes and this should be confirmed with a follow-up test. For someone with known diabetes, a value <7% indicates that their diabetes is well controlled and a value greater than or equal to 7% indicates suboptimal control. A1c targets should be individualized based on duration of diabetes, age, comorbid conditions, and other considerations. Currently, no consensus exists regarding use of hemoglobin A1c for diagnosis of diabetes for children. Specimen Blood Narrative Performed At FASTING: UNKNOWN [facility] Resulting Agency Comment Performing Organization Information: Site ID: [id number] Name: [facility] Address: [address] [place] [id number] Director: Shireen Mchugh Performing Organization Address [facility] Phone Number [employer] [place] [place] [phone] Urinalysis, automated with microscopy (10/10/2018 10:41 AM CDT) Color, UA YELLOW YELLOW [email or web address] [place] Appearance CLEAR CLEAR [email or web address] [place] Specific gravity, 1.010 1.001 - 1.035 [facility] urine [place] pH, urine 5.5 5.0 - 8.0 [facility] [place] Glucose, urine NEGATIVE NEGATIVE [facility] [place] Bilirubin, UA NEGATIVE NEGATIVE [facility] [place] Ketones, UA NEGATIVE NEGATIVE [facility] [place] Occult blood, urine NEGATIVE NEGATIVE [facility] [place] Protein, UA NEGATIVE NEGATIVE [facility] [place] Nitrite, UA NEGATIVE NEGATIVE [facility] [place] Leukocyte esterase, TRACE (A) NEGATIVE [facility] UA [place] WBC, UA 10-20 (A) < OR=5 /HPF [facility] [place] RBC, UA NONE SEEN < OR=2 /HPF [facility] [place] Squamous epithelial NONE SEEN < OR=5 /HPF [facility] cells, UA [place] Bacteria, UA MANY (A) NONE SEEN /HPF [facility] [place] Hyaline casts, UA NONE SEEN NONE SEEN /LPF [email or web address] [place] Specimen Urine Resulting Agency Comment Performing Organization Information: Site ID: [id number] Name: [facility] Address: [address] [place] [phone] Director: Shireen Mchugh Performing Organization Address City/State/Zipcode Phone Number [employer] [place] [address] [place] [phone] Urine culture (10/10/2018 10:41 AM CDT) Urine culture SEE NOTE (A) [email or web address] Comment: [place] CULTURE, URINE, ROUTINE MICRO NUMBER:[id number] TEST STATUS: FINAL SPECIMEN SOURCE: NOT GIVEN SPECIMEN QUALITY:ADEQUATE RESULT:Greater than 100,000 CFU/mL of Escherichia coli E.coli INT [place] AMOX/CLAVULANATE S 8 AMPICILLIN R >=32 AMP/SULBACTAMR >=32 CEFAZOLINNR<=4 2 CEFEPIME S <=1 CEFTRIAXONES <=1 CIPROFLOXACINS <=0.25 GENTAMICIN S <=1 IMIPENEM S <=0.25 LEVOFLOXACIN S <=0.12 NITROFURANTOIN S <=16 PIP/TAZOBACTAM S <=4 TOBRAMYCIN S <=1 TRIMETHOPRIM/SULFA S <=20 S=SusceptibleI=IntermediateR=Resistant*=Not Tested NR=Not ReportedNN=See Therapy Comments THERAPY COMMENTS Note 1: For infections other than uncomplicated UTI caused by E. coli, K. pneumoniae or P. mirabilis: Cefazolin is resistant if AUSTIN > or=8 mcg/mL. (Distinguishing susceptible versus intermediate for isolates with AUSTIN < or=4 mcg/mL requires additional testing.) Note 2: For uncomplicated UTI caused by E. coli, K. pneumoniae or P. mirabilis: Cefazolin is susceptible if [place] <32 mcg/mL and predicts susceptible to the oral agents cefaclor, cefdinir, cefpodoxime, cefprozil, cefuroxime, cephalexin and loracarbef. Specimen Urine Resulting Agency Comment Performing Organization Information: Site ID: [id number] Name: [facility] Address: [address] [place] [address] Director: Shireen Mchugh Performing Organization Address City/[facility]/Zipcode Phone Number JOSE [email or web address] [place] [address] [place], [place] [phone] ECG 12 lead (10/10/2018 10:29 AM CDT) Ventricular rate 72 [facility]USE Atrial rate 72 [facility] GA interval 172 [facility] QRSD interval 70 [facility] QT interval 372 [facility] QTC interval 407 [facility] P axis 1 60 [facility] QRS axis 1 64 [facility] T wave axis 52 [facility] EKG impression Normal sinus [facility] rhythm-Normal ECG-In automated comparison with ECG of 13-NOV-2017 18:23,-No significant change was found- Specimen Narrative Performed At Performing Organization Address [facility] [place] Phone Number [facility] MUSE [address] [place] [address] US Breast Complete Bilateral (05/21/2018 11:42 AM DIRECT MAIL COORDINATOR) Specimen Narrative Performed At PROCEDURE: MAMMO BREAST DIAGNOSTIC TOMOSYNTHESIS BILATERAL, US BREAST HM RADIANT COMPLETE BILATERAL Computer aided detection was utilized for the interpretation of the diagnostic mammography. HISTORY:N63.0 Unspecified lump in unspecified breast, N63 LUMP COMPARISON: November 2017. Mammograms go back to 2016 for comparison. DENSITY: There are scattered areas of fibroglandular density. FINDINGS: No findings of any abnormal microcalcification or mass. 2-D and 3-D mammography accomplished. Surgical site seen in lower left breast centrally located on left cc view. Large lucent area seen in the center of the scar suggestive of some seroma. This measures 2.8 cm. No suspicious mass or calcination or adverse changes. Bilateral breast ultrasound complete. Scanning in all 4 quadrants and subareolar regions accomplished. At the surgical site is a cystic area measuring up to 2.8 cm. IMPRESSION:Benign findings RECOMMENDATION: Correlation with physical exam and annual mammography. BI-RADS 1:NEGATIVE This facility is accredited by the [employer] for Mammography. A negative x-ray report should not delay biopsy if a dominant or clinically suspicious mass is present.Not all cancers are identified by x-ray. [id number] Performing Organization Address [facility] Phone Number [facility] [address] [place] [address] Mammo Breast Diagnostic Tomosynthesis Bilateral (05/21/2018 10:42 AM DIRECT MAIL COORDINATOR) Specimen Narrative Performed At PROCEDURE: MAMMO BREAST DIAGNOSTIC TOMOSYNTHESIS BILATERAL, US BREAST RADIANT COMPLETE BILATERAL Computer aided detection was utilized for the interpretation of the diagnostic mammography. HISTORY:N63.0 Unspecified lump in unspecified breast, N63 LUMP COMPARISON: November 2017. Mammograms go back to 2016 for comparison. DENSITY: There are scattered areas of fibroglandular density. FINDINGS: No findings of any abnormal microcalcification or mass. 2-D and 3-D mammography accomplished. Surgical site seen in lower left breast centrally located on left cc view. Large lucent area seen in the center of the scar suggestive of some seroma. This measures 2.8 cm. No suspicious mass or calcination or adverse changes. Bilateral breast ultrasound complete. Scanning in all 4 quadrants and subareolar regions accomplished. At the surgical site is a cystic area measuring up to 2.8 cm. IMPRESSION:Benign findings RECOMMENDATION: Correlation with physical exam and annual mammography. BI-RADS 1:NEGATIVE This facility is accredited by the [employer] for Mammography. A negative x-ray report should not delay biopsy if a dominant or clinically suspicious mass is present.Not all cancers are identified by x-ray. [id number] Performing Organization Address [facility] Phone Number [facility] [address] [place] [address] after 02/20/2018 Advance Directives Patient has advance care planning documents on file. For more information, please contact:Prince Almaraz[address] [place] [address]
[2019-02-21 23:22] LABS: Barbiturates NEGATIVE (NEGATIVE); Benzodiazepines NEGATIVE (NEGATIVE); Cocaine NEGATIVE (NEGATIVE); METHAMPHETAM NEGATIVE (NEGATIVE); Methadone NEGATIVE (NEGATIVE); Opiates NEGATIVE (NEGATIVE); Phencyclidine NEGATIVE (NEGATIVE); THC Cannibis NEGATIVE (NEGATIVE)
[2019-02-21 23:59] LABS: Absolute Lymphocytes (CBC) 1.5 K/uL (0.7-4.9); Basophils % 0.4 % (0-1.3); Lymphocytes % 22.9 % (15.3-44.8); MPV 8.9 fL (7.6-11.3); RBC Red Blood Cell Count 4.71 M/uL (3.86-4.86)
[2019-02-22 00:04] LABS: Urine Blood NEGATIVE (NEG); Urine Glucose NEGATIVE (NEG); Urine Protein NEGATIVE (NEG)
[2019-02-22 00:06] LABS: Protime INR 0.89
[2019-02-22 00:17] LABS: ALT/SGPT 32 U/L (12-78); AST/SGOT 18 U/L (15-37); Albumin 3.5 g/dL (3.4-5.0); Alkaline Phosphatase 85 U/L (45-117); BUN Blood Urea Nitrogen 14 mg/dL (7-18); Bicarbonate 22 mmol/L (21-32); Bilirubin Direct < 0.1 mg/dL (0-0.2); Bilirubin Total 0.2 mg/dL (0.2-1.0); Glucose Level 156 mg/dL (74-106); Magnesium 1.9 mg/dL (1.8-2.4); NT PRO-BNP 18 pg/mL (<125); Potassium 3.2 mmol/L (3.5-5.1); Protein, Total 7.1 g/dL (6.4-8.2); Sodium Level 139 mmol/L (136-145); Troponin (Emerg Dept Use Only) < 0.02 ng/mL (0.0-0.045)
--- NOTE | 2019-02-22 00:32 | ER ---
Nurse's Notes [facility] Name: Rhianna Nguyen Age: 48 yrs Sex: Female : 1970 Arrival Date: 02/21/2019 Time: 22:25 Bed 20 Private MD: Diagnosis: Palpitations;Hypokalemia Presentation: 02/21 22:30 Presenting complaint: Patient states: i felt palpitation started 8pm tonight while I am rr5 sitting at the couch on side lying position at home. around 10 PM i took my bistolic 2.5mg tablet taken for the palpitation. 2 days ago i felt the same symptoms then it resolved on its own. 22:30 Transition of care: patient was not received from another setting of care. Onset of rr5 symptoms was February 21, 2019 at 20:00. Risk Assessment: Do you want to hurt yourself or someone else? Patient reports no desire to harm self or others. Initial Sepsis Screen: Does the patient meet any 2 criteria? No. Patient's initial sepsis screen is negative. Does the patient have a suspected source of infection? No. Patient's initial sepsis screen is negative. Care prior to arrival: Medication(s) given: bistolic. 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 - Social history:: Smoking status: Patient/guardian denies using tobacco, Patient uses alcohol, occasionally. Patient/guardian denies using street drugs. - Ebola Screening: : Patient negative for fever greater than or equal to 101.5 degrees Fahrenheit, and additional compatible Ebola Virus Disease symptoms Patient denies exposure to infectious person Patient denies travel to an Ebola-affected area in the 21 days before illness onset. Screenin:01 Abuse screen: Denies threats or abuse. Denies injuries from another. Nutritional rr5 screening: No deficits noted. Tuberculosis screening: No symptoms or risk factors identified. Fall Risk IV access (20 points). Total Rankin Fall Scale indicates No Risk (0-24 pts). Assessment: 22:30 General: Appears in no apparent distress. comfortable, Behavior is calm, cooperative, rr5 appropriate for age. 22:30 Pain: Denies pain. Neuro: Level of Consciousness is awake, alert, obeys commands, rr5 Oriented to person, place, time, situation, Appropriate for age. Cardiovascular: Reports palpitations, Capillary refill < 3 seconds Patient's skin is warm and dry. Respiratory: Airway is patent Respiratory effort is even, unlabored, Respiratory pattern is regular, symmetrical. GI: No signs and/or symptoms were reported involving the gastrointestinal system. : No signs and/or symptoms were reported regarding the genitourinary system. EENT: Derm: Skin is intact, Skin is pink, warm \T\ dry. Skin temperature is warm. Musculoskeletal: Circulation, motion, and sensation intact. Capillary refill < 3 seconds. 23:15 Reassessment: specimen hemolyze blood sample recollect. rr5 02/22 00:05 Reassessment: Patient appears in no apparent distress at this time. Patient and/or rr5 family updated on plan of care and expected duration. Pain level reassessed. Patient is alert, oriented x 3, equal unlabored respirations, skin warm/dry/pink. no complaints made. awaiting for result. Patient denies pain at this time. 00:45 Reassessment: Patient appears in no apparent distress at this time. Patient is alert, rr5 oriented x 3, equal unlabored respirations, skin warm/dry/pink. discharge instruction given and explained without complaints made. Patient denies pain at this time. Patient states feeling better. Patient states symptoms have improved. Vital Signs: 02/21 22:30 BP 168 / 65; Pulse 78; Resp 17; Temp 97.9; Pulse Ox 100% ; Weight 96.16 kg; Height 5 rr5 ft. 3 in. (160.02 cm); Pain 0/10; 23:30 BP 133 / 68; Pulse 76; Resp 16; Pulse Ox 98% on R/A; rr5 02/22 00:35 BP 120 / 62; Pulse 85; Resp 17; Temp 97.5; Pulse Ox 100% ; rr5 02/21 22:30 Body Mass Index 37.55 (96.16 kg, 160.02 cm) rr5 ED Course: 02/21 22:25 Patient arrived in ED. es 22:35 Arm band placed on. EKG completed in triage. Results shown to MD. rr5 22:35 Patient has correct armband on for positive identification. Placed in gown. Bed in low rr5 position. Call light in reach. Side rails up X2. 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 Pulse ox on. NIBP on. 22:39 Juan De Guzman MD is Attending Physician. tw4 22:44 Marcelo Blanco, RN is Primary Nurse. rr5 22:51 Triage completed. rr5 22:55 Inserted saline lock: 20 gauge in left antecubital area, using aseptic technique. rr5 ,using aseptic technique. [facility] collected. 22:58 XRAY Chest (1 view) In Process Unspecified. EDMS 23:15 Inserted saline lock: 20 gauge in right forearm, using aseptic technique. Blood rr5 collected. 02/22 00:50 No provider procedures requiring assistance completed. IV discontinued, intact, rr5 bleeding controlled, No redness/swelling at site. Pressure dressing applied. Administered Medications: 00:34 CANCELLED (Duplicate Order): Potassium Effervescent Tablet 25 mEq PO once; dissolve in tw4 4 ounces of water or juice 00:44 Drug: Potassium Effervescent Tablet 50 mEq Route: PO; rr5 00:44 Follow up: Response: Medication administered at discharge. rr5 00:51 Follow up: Response: Medication administered at discharge. rr5 Outcome: 00:27 Discharge ordered by . tw4 00:50 Discharged to home ambulatory, with family. rr5 00:50 Condition: stable 00:50 Discharge instructions given to patient, Instructed on discharge instructions, follow up and referral plans. Demonstrated understanding of instructions, follow-up care, medications. 00:51 Patient left the ED. rr5 Signatures: Dispatcher [employer] EDID Rosa Purcell Terrence, MD MD tw4 Marcelo Blanco, RN RN rr5
[2019-02-22] MEDS ORDERED: POTASSIUM 25 MEQ EFFERV TAB ONE (00:34)
--- NOTE | 2019-02-22 00:34 | EDPHYS ---
Physician Documentation [facility] Name: Rhianna Nguyen Age: 48 yrs Sex: Female : 1970 Arrival Date: 02/21/2019 Time: 22:25 Bed 20 Private MD: ED Physician Juan De Guzman HPI: 02/21 23:47 This 48 yrs old Female presents to ER via Ambulatory with complaints of tw4 Palpitations. 23:47 The patient presents with a history of heart racing. Context: The symptoms occur at tw4 rest. Onset: The symptoms/episode began/occurred today. Duration: The patient or guardian reports a single episode, that is now resolved. Modifying factors: The symptoms are aggravated by nothing. The symptoms are alleviated by nothing. Severity of symptoms: At their worst the symptoms were moderate in the emergency department the symptoms are unchanged. 02/22 00:07 The patient has experienced similar episodes in the past, a few times. 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 - Social history:: Smoking status: Patient/guardian denies using tobacco, Patient uses alcohol, occasionally. Patient/guardian denies using street drugs. - Ebola Screening: : Patient negative for fever greater than or equal to 101.5 degrees Fahrenheit, and additional compatible Ebola Virus Disease symptoms Patient denies exposure to infectious person Patient denies travel to an Ebola-affected area in the 21 days before illness onset. ROS: 02/22 00:07 Constitutional: Negative for fever, chills, and weight loss, Eyes: Negative for injury, tw4 pain, redness, and discharge, Respiratory: Negative for shortness of breath, cough, wheezing, and pleuritic chest pain, Abdomen/GI: Negative for abdominal pain, nausea, vomiting, diarrhea, and constipation, Back: Negative for injury and pain, MS/Extremity: Negative for injury and deformity, Skin: Negative for injury, rash, and discoloration. Cardiovascular: Positive for palpitations, Negative for chest pain, edema, orthopnea. Exam: 02/21 23:47 Constitutional: This is a well developed, well nourished patient who is awake, alert, tw4 and in no acute distress. Head/Face: Normocephalic, atraumatic. Chest/axilla: Normal chest wall appearance and motion. Nontender with no deformity. No lesions are appreciated. Cardiovascular: Regular rate and rhythm with a normal S1 and S2. No gallops, murmurs, or rubs. Normal PMI, no JVD. No pulse deficits. Respiratory: Lungs have equal breath sounds bilaterally, clear to auscultation and percussion. No rales, rhonchi or wheezes noted. No increased work of breathing, no retractions or nasal flaring. Abdomen/GI: Soft, non-tender, with normal bowel sounds. No distension or tympany. No guarding or rebound. No evidence of tenderness throughout. Skin: Warm, dry with normal turgor. Normal color with no rashes, no lesions, and no evidence of cellulitis. MS/ Extremity: Pulses equal, no cyanosis. Neurovascular intact. Full, normal range of motion. Neuro: Awake and alert, GCS 15, oriented to person, place, time, and situation. Cranial nerves II-XII grossly intact. Motor strength 5/5 in all extremities. Sensory grossly intact. Cerebellar exam normal. Normal gait. Vital Signs: 22:30 BP 168 / 65; Pulse 78; Resp 17; Temp 97.9; Pulse Ox 100% ; Weight 96.16 kg; Height 5 rr5 ft. 3 in. (160.02 cm); Pain 0/10; 23:30 BP 133 / 68; Pulse 76; Resp 16; Pulse Ox 98% on R/A; rr5 02/22 00:35 BP 120 / 62; Pulse 85; Resp 17; Temp 97.5; Pulse Ox 100% ; rr5 02/21 22:30 Body Mass Index 37.55 (96.16 kg, 160.02 cm) rr5 MDM: 02/21 22:39 Patient medically screened. [facility] 02/22 00:07 Data reviewed: vital signs, nurses notes. Counseling: I had a detailed discussion with [facility] the patient and/or guardian regarding: the historical points, exam findings, and any diagnostic results supporting the discharge/admit diagnosis, lab results, radiology results. 02/21 22:40 Order name: Basic Metabolic Panel; Complete Time: 00:25 [facility] 02/22 00:25 Interpretation: Normal except: K 3.2; GLUC 156; GFR 82. [facility] 02/21 22:40 Order name: CBC with Diff; Complete Time: 00:08 [facility] 02/21 22:40 Order name: LFT's; Complete Time: 00:25 [facility] 02/22 00:26 Interpretation: Within normal limits: GLOB 3.6; A/G 1.0. [facility] 02/21 22:40 Order name: Magnesium; Complete Time: 00:25 [facility] 02/22 00:26 Interpretation: Within normal limits: MG 1.9. [facility] 02/21 22:40 Order name: NT PRO-BNP; Complete Time: 00:25 [facility] 02/21 22:40 Order name: PT-INR; Complete Time: 00:08 [facility] 02/21 22:40 Order name: Troponin (emerg Dept Use Only); Complete Time: 00:25 [facility] 02/22 00:27 Interpretation: Within normal limits: TROPED < 0.02. [facility] 02/21 22:40 Order name: XRAY Chest (1 view) [facility] 02/21 22:40 Order name: EKG; Complete Time: 22:41 [facility] 02/21 22:40 Order name: Cardiac monitoring; Complete Time: 22:55 [facility] 02/21 22:40 Order name: Urine Dipstick--Ancillary (enter results); Complete Time: 00:08 [facility] 02/21 22:47 Order name: Urine Drug Screen; Complete Time: 00:08 [facility] 02/21 22:40 Order name: EKG - Nurse/Tech; Complete Time: 23:01 [facility] 02/21 22:40 Order name: IV Saline Lock; Complete Time: 23:01 [facility] 02/21 22:40 Order name: Labs collected and sent; Complete Time: 23:01 [facility] 02/21 22:40 Order name: O2 Per Protocol; Complete Time: : tw4 02/21 22:40 Order name: O2 Sat Monitoring; Complete Time: : EC/17 23:47 Rate is 81 beats/min. Rhythm is regular. QRS [place] is Normal. TN interval is normal. QRS tw4 interval is normal. QT interval is normal. No Q waves. T waves are Normal. No ST changes noted. Clinical impression: Normal ECG. Interpreted by me. Reviewed by me. Administered Medications: 02/22 00:34 CANCELLED (Duplicate Order): Potassium Effervescent Tablet 25 mEq PO once; dissolve in tw4 4 ounces of water or juice 00:44 Drug: Potassium Effervescent Tablet 50 mEq Route: PO; rr5 00:44 Follow up: Response: Medication administered at discharge. rr5 00:51 Follow up: Response: Medication administered at discharge. rr5 Disposition: 02/22/19 00:27 Discharged to Home. Impression: Palpitations, Hypokalemia. - Condition is Stable. - Discharge Instructions: Palpitations, Hypokalemia. - Medication Reconciliation Form, Thank You Letter, Antibiotic Education, Prescription Opioid Use form. - Follow up: Private Physician; When: Upon discharge from the Emergency Department; Reason: If symptoms return, Recheck today's complaints, Continuance of care. - Problem is new. - Symptoms have improved. Signatures: Dispatcher [employer] EDJuan Thakur MD MD tw4 Marcelo Blanco RN RN rr5 Corrections: (The following items were deleted from the chart) 00:07 02/21 23:47 The patient has not experienced similar symptoms in the past, tw4 4 02/22 00:34 00:33 Potassium Effervescent Tablet 25 mEq PO once; dissolve in 4 ounces of water or tw4 juice ordered. tw4 00:51 00:27 02/22/2019 00:27 Discharged to Home. Impression: Palpitations; Hypokalemia. rr5 Condition is Stable. Forms are Medication Reconciliation Form, Thank You Letter, Antibiotic Education, Prescription Opioid Use. Follow up: Private Physician; When: Upon discharge from the Emergency Department; Reason: If symptoms return, Recheck today's complaints, Continuance of care. Problem is new. Symptoms have improved. tw4
[2019-02-22 03:02] VITALS: BP 120/62; TEMP 97.5; O2SAT 100
--- NOTE | 2019-02-22 11:31 | RAD REPORT ---
EXAM DESCRIPTION: Jasmin Single View02/21/2019 10:56 pm CLINICAL HISTORY: Chest pain COMPARISON: October 2018 FINDINGS: The lungs appear clear of acute infiltrate. The heart is normal size IMPRESSION: No acute abnormalities displayed
--- NOTE | 2019-02-22 16:57 | EKG ---
Test Date: 2019-02-21 Test Time: 22:34:04 Senior Relationship Manager: RR MEASUREMENT RESULTS: Intervals: Rate: 81 MN: 182 QRSD: 82 QT: 368 QTc: 427 [place]: P: 51 MN: 182 QRS: 58 T: 43 INTERPRETIVE STATEMENTS: Normal sinus rhythm Normal ECG Compared to ECG 10/08/2018 16:08:07 No significant changes Electronically Signed On 02-22-19 16:55:57 CDT by Britton Vicente
== END 2019-02-22 00:51 | disposition home or self-care (01) ==
LOC: ER 22:22
DX: E87.6 Hypokalemia (principal); I10 Essential (primary) hypertension; E11.9 Type 2 diabetes mellitus without complications; Z79.4 Long term (current) use of insulin; Z88.0 Allergy status to penicillin; Z88.2 Allergy status to sulfonamides; Z88.3 Allergy status to other anti-infective agents; Z88.5 Allergy status to narcotic agent
CPT/HCPCS: 36415; 71045; 80048; 80076; 80307; 81003; 83735; 83880; 84484; 85025; 85610; 93005; 99284